=== PATIENT | female | born 1935 | race Caucasian/White ===

== ENCOUNTER 2019-05-17 01:07 | Observation (INO) | payer MEDICARE, OTHER ==
--- NOTE | 2019-05-17 01:13 | ERPHSYRPT ---
- History of Present Illness Time Seen by Provider: 05/17/19 01:12 Source: patient Exam Limitations: no limitations Physician History: 83 y/o white female with h/o chf, presents with soa for several days. sx worsening. no cp. no cough. no fever. pt stopped her lasix 6 weeks ago because she was losing weight. pts medical reviewer dr. Mora. Timing/Duration: day(s) (several), worse Severity of Dyspnea-Max: moderate Possible Cause: occasional episodes Modifying Factors: Improves With: activity Associated Symptoms: No wheezing, No weakness, No painful breathing, No productive cough Allergies/Adverse Reactions: naproxen Allergy (Verified 05/17/19 01:36) Penicillins Allergy (Verified 05/17/19 01:36) Hx Tetanus, Diphtheria Vaccination/Date Given: Yes Hx Influenza Vaccination/Date Given: Yes Hx Pneumococcal Vaccination/Date Given: No - Review of Systems Constitutional: No Symptoms Eyes: No Symptoms Ears, Nose, & Throat: No Symptoms Respiratory: Dyspnea, Dyspnea on Exertion (YAN) Cardiac: No Symptoms, No Chest Pain, No Palpitations, No Syncope Abdominal/Gastrointestinal: No Symptoms, No Abdominal Pain, No Nausea, No Vomiting, No Diarrhea Genitourinary Symptoms: No Symptoms Musculoskeletal: No Symptoms Skin: No Symptoms Neurological: No Symptoms Psychological: No Symptoms Endocrine: No Symptoms Hematologic/Lymphatic: No Symptoms Immunological/Allergic: No Symptoms All Other Systems: Reviewed and Negative - Past Medical History Pertinent Past Medical History: Yes Neurological History: No Pertinent History ENT History: No Pertinent History Cardiac History: No Pertinent History Respiratory History: No Pertinent History Endocrine Medical History: No Pertinent History Musculoskeletal History: No Pertinent History GI Medical History: No Pertinent History History: No Pertinent History Psycho-Social History: No Pertinent History Female Reproductive Disorders: No Pertinent History Other Medical History: varicose veins 45 years ago. 6 natural births. chronic sciatica - Past Surgical History Past Surgical History: Yes Neuro Surgical History: No Pertinent History Cardiac: No Pertinent History Respiratory: No Pertinent History Gastrointestinal: No Pertinent History Genitourinary: No Pertinent History Musculoskeletal: No Pertinent History Female Surgical History: No Pertinent History Other Surgical History: VARICOSE VEIN SURGERY - Social History Smoking Status: Never smoker Exposure to second hand smoke: No Drug Use: none Patient Lives Alone: No - Nursing Vital Signs Nursing Vital Signs: Initial Vital Signs Temperature 98.2 F 05/17/19 01:15 Pulse Rate 85 05/17/19 01:15 Respiratory Rate 25 H 05/17/19 01:15 Blood Pressure 150/89 05/17/19 01:15 O2 Sat by Pulse Oximetry 85 L 05/17/19 01:15 Pain Scale Pain Intensity 0 - Physical Exam General Appearance: mild distress, alert, anxiety Eye Exam: PERRL/EOMI Ears, Nose, Throat Exam: hearing grossly normal Neck Exam: normal inspection, non-tender, supple, full range of motion Respiratory Exam: diminished breath sounds, No chest tenderness, No respiratory distress, No rhonchi, No wheezing, No stridor Cardiovascular/Chest Exam: normal heart sounds, regular rate/rhythm, murmur Abdominal/Gastrointestinal Exam: soft, normal bowel sounds, No tenderness Rectal Exam: not done Extremity Exam: non-tender, normal range of motion, normal inspection, no pedal edema Neurologic Exam: alert, oriented x 3, cooperative Skin Exam: normal color, warm, dry Lymphatic Exam: No adenopathy SpO2 Interpretation: hypoxic - Course Nursing assessment & vital signs reviewed: Yes EKG Interpreted by Me: RATE (72), Sinus Rhythm, Left [place] Deviation, Right Bundle Branch Block, Other (when compared to ekg dated 05/04/16 new probable incomplete rbbb, persistent left ant fascicular block) Ordered Tests: Active Orders 24 hr Category Date Time Status Communication Electronic Technician STAT Care 05/17/19 01:14 Active EKG-ER Only STAT Care 05/17/19 01:13 Active Palomares [Catheter-[place] Palomares] STAT Care 05/17/19 06:52 Active IV Insertion STAT Care 05/17/19 01:13 Active Oxygen-ED Only Nasal Cannula 2 lpm Care 05/17/19 01:13 Active Pulse Oximetry (ED) STAT Care 05/17/19 01:13 Active CHEST 1 VIEW (PORTABLE) Stat Exams 05/17/19 01:14 Taken CHEST WITH CONTRAST [CT] Stat Exams 05/17/19 04:07 Taken BLOOD CULTURE Stat Lab 05/17/19 Ordered CBC W DIFF Stat Lab 05/17/19 01:13 Completed CMP Stat Lab 05/17/19 02:28 Completed D-DIMER QUANTITATION Stat Lab 05/17/19 01:13 Completed Lactic Acid Stat Lab 05/17/19 01:25 Completed NT PRO BNP Stat Lab 05/17/19 02:28 Completed PROTIME WITH INR Stat Lab 05/17/19 01:13 Completed TROPONIN Q3H Lab 05/17/19 02:28 Completed TROPONIN Q3H Lab 05/17/19 04:25 Completed TROPONIN Q3H Lab 05/17/19 07:15 Ordered TROPONIN Q3H Lab 05/17/19 10:15 Ordered TROPONIN Q3H Lab 05/17/19 13:15 Ordered Transfer Order Routine Transfer 05/17/19 Ordered Medication Summary Generic Name Dose Route Start Last Admin Trade Name Freq PRN Reason Stop Dose Admin Sodium Chloride 1,000 mls @ 50 mls/hr 05/17/19 04:15 05/17/19 04:21 Sodium Chloride 0.9% 1000 Ml IV 06/16/19 04:14 50 mls/hr .Q20H RENETTA Administration Ceftriaxone Sodium/Dextrose 1 g in 50 mls @ 100 mls/hr 05/17/19 06:44 06:52 Rocephin 1 Gm-D5w 50 Ml Bag IV 05/17/19 07:13 1 mls/hr STAT STA 1 mls/hr Administration Discontinued Medications Generic Name Dose Route Start Last Admin Trade Name Freq PRN Reason Stop Dose Admin Furosemide 40 mg 05/17/19 04:08 05/17/19 04:21 Lasix 40 Mg/4 Ml IV 05/17/19 04:09 40 mg STAT ONE Administration Furosemide Confirm 05/17/19 04:19 Lasix 40 Mg/4 Ml Administered 05/17/19 04:20 Dose 40 mg .ROUTE .STK-MED ONE Furosemide 20 mg 05/17/19 06:45 05/17/19 06:53 Lasix 20 Mg/2 Ml IV 05/17/19 06:46 20 mg STAT ONE Administration Furosemide Confirm 05/17/19 06:49 Lasix 40 Mg/4 Ml Administered 05/17/19 06:50 Dose 40 mg .ROUTE .STK-MED ONE Ceftriaxone Sodium/Dextrose Confirm 05/17/19 05:59 Rocephin 1 Gm-D5w 50 Ml Bag Administered 05/17/19 06:00 Dose 1 g in 50 mls @ ud IV .STK-MED ONE Lab/Rad Data: Laboratory Result Diagrams 05/17/19 01:13 05/17/19 02:28 Laboratory Results 05/17/19 05/17/19 05/17/19 Range/Units 04:25 02:28 02:28 WBC (4.0-10.5) K/mm3 RBC (4.1-5.4) M/mm3 Hgb (12.0-16.0) gm/dl Hct (35-47) % MCV (78-100) fl MCH (26-32) pg MCHC (32-36) g/dl RDW (11.5-14.0) % Plt Count (150-450) K/mm3 MPV (6-9.5) fl Gran % (36.0-66.0) % Eos # (Auto) (0-0.5) Absolute Lymphs (auto) (1.0-4.6) Absolute Monos (auto) (0.0-1.3) Lymphocytes % (24.0-44.0) % Monocytes % (0.0-12.0) % Eosinophils % (0.00-5.0) % Basophils % (0.0-0.4) % Absolute Granulocytes (1.4-6.9) Basophils # (0-0.4) PT (9.95-12.35) SECONDS INR (0.8-3.0) D-Dimer (215-500) ng/mL Sodium 140 (137-145) mmol/L Potassium 4.8 (3.5-5.1) mmol/L Chloride 108 H (98-107) mmol/L Carbon Dioxide 25 (22-30) mmol/L Anion Gap 12.4 (5-15) MEQ/L BUN 25 H (7-17) mg/dL Creatinine 1.02 (0.52-1.04) mg/dL Estimated GFR 54.7 ML/MIN Glucose 98 (74-106) mg/dL Lactic Acid (0.4-2.0) Calcium 9.1 (8.4-10.2) mg/dL Total Bilirubin 0.40 (0.2-1.3) mg/dL AST 57 H (14-36) U/L ALT 34 (0-35) U/L Alkaline Phosphatase 75 (38-126) U/L Troponin I 0.069 H* 0.077 H* (0.000-0.034) ng/mL NT-Pro-B Natriuret Pep 44904 H (0-1800) pg/mL Serum Total Protein 7.0 (6.3-8.2) g/dL Albumin 3.9 (3.5-5.0) g/dL 05/17/19 05/17/19 05/17/19 Range/Units 01:25 01:13 01:13 WBC 7.8 (4.0-10.5) K/mm3 RBC 3.79 L (4.1-5.4) M/mm3 Hgb 11.7 L (12.0-16.0) gm/dl Hct 35.3 (35-47) % MCV 93.1 (78-100) fl MCH 30.8 (26-32) pg MCHC 33.1 (32-36) g/dl RDW 13.6 (11.5-14.0) % Plt Count 321 (150-450) K/mm3 MPV 9.9 H (6-9.5) fl Gran % 59.4 (36.0-66.0) % Eos # (Auto) 0.87 H (0-0.5) Absolute Lymphs (auto) 1.52 (1.0-4.6) Absolute Monos (auto) 0.73 (0.0-1.3) Lymphocytes % 19.5 L (24.0-44.0) % Monocytes % 9.4 (0.0-12.0) % Eosinophils % 11.2 H (0.00-5.0) % Basophils % 0.5 (0.0-0.4) % Absolute Granulocytes 4.63 (1.4-6.9) Basophils # 0.04 (0-0.4) PT 11.1 (9.95-12.35) SECONDS INR 0.98 (0.8-3.0) D-Dimer 2019 H* (215-500) ng/mL Sodium (137-145) mmol/L Potassium (3.5-5.1) mmol/L Chloride (98-107) mmol/L Carbon Dioxide (22-30) mmol/L Anion Gap (5-15) MEQ/L BUN (7-17) mg/dL Creatinine (0.52-1.04) mg/dL Estimated GFR ML/MIN Glucose (74-106) mg/dL Lactic Acid 1.2 (0.4-2.0) Calcium (8.4-10.2) mg/dL Total Bilirubin (0.2-1.3) mg/dL AST (14-36) U/L ALT (0-35) U/L Alkaline Phosphatase (38-126) U/L Troponin I (0.000-0.034) ng/mL NT-Pro-B Natriuret Pep (0-1800) pg/mL Serum Total Protein (6.3-8.2) g/dL Albumin (3.5-5.0) g/dL - Progress Progress: improved Air Movement: fair Progress Note: 05/17/19 06:53 cta chest-no pulmonary embolus, bilat pleural effusion, bilat lower lobe pneumonias(haziness) spoke with dr. mills. i reviewed pt hx, condition, labs, ekg and xray results. she accepts pt for admission Antibiotics given: Yes Counseled pt/family regarding: lab results, diagnosis, need for follow-up, rad results - Departure Departure Disposition: Home Clinical Impression: CHF (congestive heart failure), Pneumonia, Pleural effusion Condition: Fair Critical Care Time: No Referrals: DANIEL LOYOLA [Primary Care Provider] - Instructions: Heart Failure
[2019-05-17 02:00] LABS: BASOPHIL % 0.5 % (0.0-0.4); Basophil (Absolute #) 0.04 (0-0.4); Eosinophil % 11.2 % (0.00-5.0); Eosinophil (Absolute #) 0.87 (0-0.5); Granulocyte Absolute (ANC) 4.63 (1.4-6.9); Granulocytes % 59.4 % (36.0-66.0); Hematocrit 35.3 % (35-47); Hemoglobin 11.7 gm/dl (12.0-16.0); Lymphocyte (Absolute #) 1.52 (1.0-4.6); Lymphocytes % 19.5 % (24.0-44.0); Mean Cell Volume 93.1 fl (78-100); Mean Corpuscular Hgb Concent. 33.1 g/dl (32-36); Mean Platelet Volume 9.9 fl (6-9.5); Monocyte (Absolute #) 0.73 (0.0-1.3); Monocytes % 9.4 % (0.0-12.0); Platelet Count 321 K/mm3 (150-450); Red Blood Count 3.79 M/mm3 (4.1-5.4); Red Cell Distribution Width 13.6 % (11.5-14.0); White Blood Count 7.8 K/mm3 (4.0-10.5)
[2019-05-17 02:16] LABS: Mean Corpuscular Hemoglobin 30.8 pg (26-32)
[2019-05-17 02:18] LABS: INR 0.98 (0.8-3.0); PROTIME 11.1 SECONDS (9.95-12.35)
[2019-05-17 03:52] LABS: ALBUMIN 3.9 g/dL (3.5-5.0); ANION GAP 12.4 MEQ/L (5-15); BILIRUBIN,TOTAL 0.4 mg/dL (0.2-1.3); Calcium 9.1 mg/dL (8.4-10.2); Creatinine 1 1.02 mg/dL (0.52-1.04); Potassium 4.8 mmol/L (3.5-5.1)
[2019-05-17] MEDS ORDERED: Lasix 40 MG/4 ML IV ONE (04:08)
[2019-05-17] MEDS ORDERED: Sodium Chloride 0.9% 1000 ML 1,000 ML IV SCH ×2 (04:15→07:41)
[2019-05-17] MEDS ORDERED: Sodium Chloride 0.9% 1000 ML 1,000 ML ONE (04:19)
[2019-05-17] MEDS ORDERED: Lasix 40 MG/4 ML ONE ×2 (04:19→06:49)
[2019-05-17] MEDS ORDERED: ROCEPHIN 1 Gm-D5w 50 ml Bag** 1 G/50 ML IVPB IV ONE (05:59)
[2019-05-17] MEDS ORDERED: ROCEPHIN 1 Gm-D5w 50 ml Bag** 1 G/50 ML IVPB IV STA (06:44)
[2019-05-17] MEDS ORDERED: Lasix 20 MG/2 ML IV ONE ×2 (06:45→20:00)
[2019-05-17] MEDS ORDERED: TYLENOL 325 MG PO PRN (07:41)
[2019-05-17] MEDS ORDERED: Zofran 4 MG/2 ML VIAL IV PRN (07:41)
--- NOTE | 2019-05-17 08:53 | XRAY ---
Indication: Short of breath. Elevated d-dimer. Multiple contiguous axial images obtained through the chest using 100 cc Isovue 370 contrast and PE protocol. Comparison: None There is good opacification of the pulmonary arteries to include the lobar and segmental branches. No filling defect or pulmonary embolus. Heart is enlarged. No pericardial effusion. Aorta is mildly arteriosclerotic without aneurysm/dissection. Mediastinal and right perihilar calcified nodes. No pathologic mediastinal lymphadenopathy. Examination of the lung parenchyma demonstrates moderate bilateral effusions, right greater than left with mild compressive atelectasis. Also bilateral patchy air space opacities greatest in both lower lobes. Scattered fibrosis/scarring. Bony thorax intact with mild osteopenia and mild degenerative changes. Limited upper abdomen demonstrates 3.6 cm hepatic cyst. Impression: 1. Negative pulmonary embolus. 2. Cardiomegaly and bilateral effusions. Rule out cardiac decompensation. 3. Bilateral patchy airspace disease. 4. Incidental hepatic cyst and evidence for granulomatous disease. Comment: Preliminary interpretation was made by [facility]. No critical discrepancy. CT DI 13.33
[2019-05-17] MEDS: Advair Hfa 115/21 Common canister IH SCH ×2 (08:55→22:47)
--- NOTE | 2019-05-17 08:55 | XRAY ---
Indication: Short of breath. Comparison: August 21, 2014. Portable chest again hyperinflated with new cardiomegaly, interstitial edema, and small bibasilar effusions favoring cardiac decompensation. Also new bibasilar infiltrates versus atelectasis. Bony thorax intact again with osteopenia and degenerative changes.
[2019-05-17] MEDS: ZOCOR 20MG PO SCH (09:46)
[2019-05-17] MEDS: SYNTHROID 25 MCG PO SCH (09:46)
[2019-05-17] MEDS: Zestril 10 MG PO SCH (09:46)
[2019-05-17] MEDS ORDERED: ADVAIR 250-50 DISKUS 14 DOSE IH SCH (10:00)
[2019-05-17] MEDS ORDERED: Zithromax 500 MG/ 250 ML NaCl Premix 500 MG/250 ML IVPB IV SCH (10:00)
[2019-05-17] MEDS ORDERED: NON-FORMULARY ITEM (Simvastatin [Simvastatin] 40 MG) PO SCH (10:00)
[2019-05-18 05:03] LABS: BASOPHIL % 0.8 % (0.0-0.4); Basophil (Absolute #) 0.06 (0-0.4); Eosinophil % 11.6 % (0.00-5.0); Eosinophil (Absolute #) 0.85 (0-0.5); Granulocyte Absolute (ANC) 4.38 (1.4-6.9); Granulocytes % 59.7 % (36.0-66.0); Hematocrit 35.2 % (35-47); Hemoglobin 11.6 gm/dl (12.0-16.0); Lymphocyte (Absolute #) 1.25 (1.0-4.6); Lymphocytes % 17.1 % (24.0-44.0); Mean Cell Volume 92.6 fl (78-100); Mean Corpuscular Hemoglobin 30.5 pg (26-32); Mean Platelet Volume 9.6 fl (6-9.5); Monocyte (Absolute #) 0.79 (0.0-1.3); Monocytes % 10.8 % (0.0-12.0); Platelet Count 314 K/mm3 (150-450); Red Cell Distribution Width 13.3 % (11.5-14.0); White Blood Count 7.3 K/mm3 (4.0-10.5)
[2019-05-18 05:35] LABS: ALBUMIN 3.2 g/dL (3.5-5.0); ANION GAP 10.4 MEQ/L (5-15); BILIRUBIN,TOTAL 0.4 mg/dL (0.2-1.3); Calcium 8.6 mg/dL (8.4-10.2); Creatinine 1 1.02 mg/dL (0.52-1.04); Potassium 4.4 mmol/L (3.5-5.1)
[2019-05-18 07:26] VITALS: BP 124/62; O2SAT 94
[2019-05-18] MEDS: ZOCOR 20MG PO SCH (08:51)
[2019-05-18] MEDS: Zestril 10 MG PO SCH (08:51)
[2019-05-18] MEDS: SYNTHROID 25 MCG PO SCH (08:51)
[2019-05-18] MEDS ORDERED: ROCEPHIN 1 Gm-D5w 50 ml Bag** 1 G/50 ML IVPB IV SCH (09:00)
[2019-05-18] MEDS: Advair Hfa 115/21 Common canister IH SCH (09:30)
--- NOTE | 2019-05-18 09:44 | SSS ---
DISCHARGE DIAGNOSES: 1) CONGESTIVE HEART FAILURE. 2) CORONARY ARTERY DISEASE. HISTORY: The patient is an 83 year-old white female who reports that she was concerned because she was losing weight and she stopped taking her Lasix about six weeks ago. She slowly got into problems with more and more shortness of breath. She presented to the emergency room and diagnosed with congestive heart failure and given a dose of IV Lasix and the patient diuresed briskly having greater than 1300 cc out after the first dose of IV Lasix. The patient's cardiac enzymes however have remained just slightly elevated. She has recently seen her chief relay tester about three weeks ago and at that time she reports things were fine and he made no changes. HOME MEDICATIONS: The patient is currently taking Synthroid at 25 mcg daily, lisinopril 10 mg daily. She takes Advair and Simvastatin 40 mg daily. She has not been taking her Lasix 40 mg daily which she normally was taking previously. ALLERGIES: NAPROXEN. PENICILLIN. PHYSICAL EXAMINATION: She had vital signs on admission that revealed temperature 98.2F, pulse 85, respiratory rate 25 and blood pressure 150.89. O2 saturation 85% on room air initially. The patient's physical examination reveals a frail, elderly white female who is alert and oriented x3, in no obvious distress otherwise. HEENT: Normocephalic, atraumatic. Pupils equal round reactive to light. Extraocular movements intact. Oropharynx is pink and moist. NECK: Supple without lymphadenopathy, thyromegaly or JVD. CHEST: Currently now clear to auscultation. HEART: Regular rate and rhythm without significant murmurs, rubs or gallops heard. ABDOMEN: Scaphoid. No palpable masses. EXTREMITIES: Without cyanosis, clubbing or edema. NEUROLOGIC: The patient is alert and oriented x3. LAB DATA AND TESTS: Laboratory studies have shown her troponins to be slightly elevated at 0.062. Her ProBNP was 12,700. She did have an elevation in D-dimer which led to CT scan with pulmonary embolism protocol which was negative for pulmonary embolism. It did show cardiomegaly and bilateral effusions. BUN 21, creatinine 1.02. Electrolytes were normal. Liver enzymes were normal. EKG showed to be in sinus rhythm with first degree AV block but otherwise her 12 lead EKG showed no acute changes. There was concern for old anterior myocardial infarction. HOSPITAL COURSE: The patient received IV Lasix and Palomares catheter was placed. She was on supplemental oxygen but now appears to be improved and feeling ready to go home. We will check O2 saturation to be sure she no longer needs oxygen. If she does we will allow her to qualify for home O2. She is asked to see me in the office early next week for follow up. She was asked to restart her Lasix at 40 mg b.i.d. in addition to her above medications otherwise. She was also asked to see her chief relay tester in the next week or so as she is able.
[2019-05-18 09:45] VITALS: PULSE 72
[2019-05-18] MEDS ORDERED: Lasix 40 MG/4 ML IV SCH (10:00)
== END 2019-05-18 11:40 | disposition home or self-care (01) ==
LOC: ED 01:07 → MED SURG 07:34
PROVIDERS: ADMIT Family Medicine; ATTEND Family Medicine
DX: I50.9 Heart failure, unspecified (principal); I25.10 Atherosclerotic heart disease of native coronary artery without angina pectoris; Z79.899 Other long term (current) drug therapy; I44.0 Atrioventricular block, first degree; I51.7 Cardiomegaly
CPT/HCPCS: 36000; 36415; 51702; 71045; 71260; 80053; 83605; 83880; 84484; 85025; 85379; 85610; 87040; 87086; 93005; 93041; 93268; 94640; 94760; 96360; 96361; 96365; 96374; 96376; 99285; G0378; J0456; J0696; J1940; A9270-GY

== ENCOUNTER 2019-08-18 01:28 | Emergency (ER) | payer MEDICARE, OTHER ==
[2019-08-18] MEDS ORDERED: Lasix 40 MG/4 ML ONE (01:55)
[2019-08-18 02:00] LABS: Absolute Neutrophil Ct (ANC) 3.36 (1.4-6.9); BASOPHIL % 0.7 % (0.0-0.4); Basophil (Absolute #) 0.04 (0-0.4); Eosinophil % 5.9 % (0.00-5.0); Eosinophil (Absolute #) 0.35 (0-0.5); Hematocrit 33.9 % (35-47); Lymphocyte (Absolute #) 1.72 (1.0-4.6); Lymphocytes % 28.9 % (24.0-44.0); Mean Cell Volume 94.4 fl (78-100); Mean Corpuscular Hemoglobin 30.6 pg (26-32); Mean Corpuscular Hgb Concent. 32.4 g/dl (32-36); Mean Platelet Volume 9.6 fl (6-9.5); Monocyte (Absolute #) 0.49 (0.0-1.3); Monocytes % 8.2 % (0.0-12.0); Neutrophil % 56.3 % (36.0-66.0); Platelet Count 253 K/mm3 (150-450); Red Blood Count 3.59 M/mm3 (4.1-5.4); Red Cell Distribution Width 14.4 % (11.5-14.0)
[2019-08-18 02:19] LABS: ALBUMIN 4.2 g/dL (3.5-5.0); ANION GAP 11.5 MEQ/L (5-15); BILIRUBIN,TOTAL 0.4 mg/dL (0.2-1.3); Calcium 9.6 mg/dL (8.4-10.2); Creatinine 1 1.16 mg/dL (0.52-1.04); Potassium 4.3 mmol/L (3.5-5.1); Total Protein 7.3 g/dL (6.3-8.2)
--- NOTE | 2019-08-18 02:34 | ERPHSYRPT ---
- History of Present Illness Time Seen by Provider: 08/18/19 01:39 Source: patient, family Exam Limitations: no limitations Patient Subjective Stated Complaint: Patient states SOB increased for the last couple of days. Patients states SOB while lying day. Patient states she had heart test today at [facility], patient states she thinks it was a stress test Triage Nursing Assessment: Patient ambulates to ER with complaint of SOB inital sat 88 Physician History: POS HC CHF: NORMALLY TAKES LASIX DAILY . PATIENT HAS BEEN OFF THE LASIX DUE TO SCHEDULED NUCLEAR HEART SCAN--DONE TODAY SOB HAS BEEN FOR THE PAST 1 WEEK NEG: FEVER Timing/Duration: week(s) (1) Activities at Onset: activity (DDAILY ACTIVITIES) Severity of Dyspnea-Current: mild (TO MODERATE) Modifying Factors: Improves With: albuterol nebulizer, oxygen Associated Symptoms: cough, weakness International travel in last 2 weeks: No Allergies/Adverse Reactions: naproxen Allergy (Verified 08/18/19 01:39) Penicillins Allergy (Verified 08/18/19 01:39) Home Medications: Fluticasone Propion/Salmeterol [Fluticasone-Salmeterol 250-50] 1 inh PO DAILY [History] Levothyroxine Sodium 25 mcg PO DAILY 05/17/19 [History] Lisinopril 10 mg [Zestril 10 MG] 1 tab PO DAILY 05/17/19 [History] Simvastatin 40 mg PO DAILY 05/17/19 [History] Hx Tetanus, Diphtheria Vaccination/Date Given: No Hx Influenza Vaccination/Date Given: Yes Hx Pneumococcal Vaccination/Date Given: No Immunizations Up to Date: Yes - Review of Systems Constitutional: Fatigue, No Fever, No Chills Eyes: No Symptoms Ears, Nose, & Throat: Nose Congestion Respiratory: Cough, Dyspnea, Dyspnea on Exertion (YAN) Cardiac: Orthopnea, No Chest Pain, No Edema, No Palpitations, No Syncope Abdominal/Gastrointestinal: No Abdominal Pain, No Nausea, No Vomiting, No Diarrhea, No Constipation Genitourinary Symptoms: No Symptoms Musculoskeletal: Arthralgias, Back Pain Skin: No Symptoms Neurological: No Symptoms Psychological: No Symptoms Endocrine: No Symptoms Hematologic/Lymphatic: No Symptoms Immunological/Allergic: No Symptoms All Other Systems: Reviewed and Negative - Past Medical History Pertinent Past Medical History: Yes Neurological History: No Pertinent History ENT History: No Pertinent History Cardiac History: Hypertension Respiratory History: Other Endocrine Medical History: Hypothyroidism Musculoskeletal History: Arthritis GI Medical History: No Pertinent History History: No Pertinent History Psycho-Social History: No Pertinent History Female Reproductive Disorders: No Pertinent History Other Medical History: varicose veins 45 years ago. 6 natural births. chronic sciatica - Past Surgical History Past Surgical History: Yes Neuro Surgical History: No Pertinent History Cardiac: No Pertinent History Respiratory: No Pertinent History Gastrointestinal: No Pertinent History Genitourinary: No Pertinent History Musculoskeletal: No Pertinent History Female Surgical History: No Pertinent History Other Surgical History: VARICOSE VEIN SURGERY - Social History Smoking Status: Never smoker Exposure to second hand smoke: No Drug Use: none Patient Lives Alone: No - Female History Hx Now: No - Nursing Vital Signs Nursing Vital Signs: Initial Vital Signs Temperature 97.3 F 08/18/19 01:30 Pulse Rate 79 08/18/19 01:30 Respiratory Rate 18 08/18/19 01:30 O2 Sat by Pulse Oximetry 88 L 08/18/19 01:30 Pain Scale Pain Intensity 0 - Physical Exam General Appearance: mild distress Eye Exam: PERRL/EOMI Ears, Nose, Throat Exam: normal pharynx, hearing decreased, nasal congestion Neck Exam: limited range of motion (POS: DJD ), No lymphadenopathy (R), No thyromegaly Respiratory Exam: chest tenderness, diminished breath sounds, prolonged expirations, crackles/rales, wheezing (END EXPIRATORY) Cardiovascular/Chest Exam: murmur (GRD2/6 SYS 2RICS/APEX 2LICS RAD-CAROTIDS ), No gallop/S3, No gallop/S4 Abdominal/Gastrointestinal Exam: normal bowel sounds, No tenderness, No distention, No mass, No guarding, No ecchymosis Extremity Exam: non-tender, normal range of motion, normal inspection, normal capillary refill, no calf tenderness, no pedal edema, pelvis stable, No calf tenderness Neurologic Exam: alert, oriented x 3, cooperative, alley worker II-XII nml as tested, normal mood/affect, nml cerebellar function Skin Exam: normal color, warm, dry, No rash Lymphatic Exam: No adenopathy SpO2 Interpretation: hypoxic, O2 applied SpO2: 88 O2 Delivery: Nasal Cannula - Course Nursing assessment & vital signs reviewed: Yes EKG Interpreted by Me: Left [place] Deviation (LAFB OLD: ANT [place] AGE ? OLD INF WALL [place] AGE? nonspec st changes 0154), 1st degree AV Block, Non-specific ST Changes Ordered Tests: Active Orders 24 hr Category Date Time Status IV Insertion STAT Care 08/18/19 01:46 Active CHEST 1 VIEW (PORTABLE) Stat Exams 08/18/19 02:00 Taken CBC W DIFF Stat Lab 08/18/19 02:00 Completed CMP Stat Lab 08/18/19 02:00 Completed NT PRO BNP Stat Lab 08/18/19 02:00 Completed PT INR [PROTIME WITH INR] Stat Lab 08/18/19 03:55 Completed TROPONIN Q3H Lab 08/18/19 02:00 Completed TROPONIN Stat Lab 08/18/19 03:55 Completed UA W/RFX UR CULTURE Stat Lab 08/18/19 02:40 Completed Medication Summary Generic Name Dose Route Start Last Admin Trade Name Freq PRN Reason Stop Dose Admin Enoxaparin Sodium 50 mg 08/18/19 04:54 Enoxaparin Sodium SQ 08/18/19 04:55 STAT ONE Furosemide 20 mg 08/18/19 10:00 08/18/19 01:56 Lasix 20 Mg/2 Ml IV 09/17/19 09:59 20 mg QAM RENETTA Administration Discontinued Medications Generic Name Dose Route Start Last Admin Trade Name Freq PRN Reason Stop Dose Admin Enoxaparin Sodium Confirm 08/18/19 05:04 Enoxaparin Sodium Administered 08/18/19 05:05 Dose 80 mg SQ .STK-MED ONE Furosemide Confirm 08/18/19 01:55 Lasix 40 Mg/4 Ml Administered 08/18/19 01:56 Dose 40 mg .ROUTE .STK-MED ONE Lab/Rad Data: Laboratory Result Diagrams 08/18/19 02:00 08/18/19 02:00 Laboratory Results 08/18/19 08/18/19 08/18/19 Range/Units 03:55 03:55 02:40 WBC (4.0-10.5) K/mm3 RBC (4.1-5.4) M/mm3 Hgb (12.0-16.0) gm/dl Hct (35-47) % MCV (78-100) fl MCH (26-32) pg MCHC (32-36) g/dl RDW (11.5-14.0) % Plt Count (150-450) K/mm3 MPV (6-9.5) fl Gran % (36.0-66.0) % Eos # (Auto) (0-0.5) Absolute Lymphs (auto) (1.0-4.6) Absolute Monos (auto) (0.0-1.3) Lymphocytes % (24.0-44.0) % Monocytes % (0.0-12.0) % Eosinophils % (0.00-5.0) % Basophils % (0.0-0.4) % Absolute Granulocytes (1.4-6.9) Basophils # (0-0.4) PT 11.6 (9.95-12.35) SECONDS INR 1.03 (0.8-3.0) Sodium (137-145) mmol/L Potassium (3.5-5.1) mmol/L Chloride (98-107) mmol/L Carbon Dioxide (22-30) mmol/L Anion Gap (5-15) MEQ/L BUN (7-17) mg/dL Creatinine (0.52-1.04) mg/dL Estimated GFR ML/MIN Glucose (74-106) mg/dL Calcium (8.4-10.2) mg/dL Total Bilirubin (0.2-1.3) mg/dL AST (14-36) U/L ALT (0-35) U/L Alkaline Phosphatase (38-126) U/L Troponin I 0.068 H* (0.000-0.034) ng/mL NT-Pro-B Natriuret Pep (0-1800) pg/mL Serum Total Protein (6.3-8.2) g/dL Albumin (3.5-5.0) g/dL Urine Color STRAW (YELLOW) Urine Appearance CLEAR (CLEAR) Urine pH 6.0 (5-6) Ur Specific Raymond 1.008 (1.005-1.025) Urine Protein 30 (Negative) Urine Ketones NEGATIVE (NEGATIVE) Urine Blood SMALL (0-5) Brando/ul Urine Nitrite NEGATIVE (NEGATIVE) Urine Bilirubin NEGATIVE (NEGATIVE) Urine Urobilinogen NEGATIVE (0-1) mg/dL Ur Leukocyte Esterase NEGATIVE (NEGATIVE) Urine WBC (Auto) NONE (0-5) /HPF Urine RBC (Auto) NONE (0-2) /HPF U Epithel Cells (Auto) NONE (FEW) /HPF Urine Bacteria (Auto) NONE (NEGATIVE) /HPF Urine Mucus (Auto) SLIGHT (NEGATIVE) /HPF Urine Culture Reflexed NO (NO) Urine Glucose NEGATIVE (NEGATIVE) mg/dL 08/18/19 08/18/19 08/18/19 Range/Units 02:00 02:00 02:00 WBC 6.0 (4.0-10.5) K/mm3 RBC 3.59 L (4.1-5.4) M/mm3 Hgb 11.0 L (12.0-16.0) gm/dl Hct 33.9 L (35-47) % MCV 94.4 (78-100) fl MCH 30.6 (26-32) pg MCHC 32.4 (32-36) g/dl RDW 14.4 H (11.5-14.0) % Plt Count 253 (150-450) K/mm3 MPV 9.6 H (6-9.5) fl Gran % 56.3 (36.0-66.0) % Eos # (Auto) 0.35 (0-0.5) Absolute Lymphs (auto) 1.72 (1.0-4.6) Absolute Monos (auto) 0.49 (0.0-1.3) Lymphocytes % 28.9 (24.0-44.0) % Monocytes % 8.2 (0.0-12.0) % Eosinophils % 5.9 H (0.00-5.0) % Basophils % 0.7 (0.0-0.4) % Absolute Granulocytes 3.36 (1.4-6.9) Basophils # 0.04 (0-0.4) PT (9.95-12.35) SECONDS INR (0.8-3.0) Sodium 141 (137-145) mmol/L Potassium 4.3 (3.5-5.1) mmol/L Chloride 106 (98-107) mmol/L Carbon Dioxide 28 (22-30) mmol/L Anion Gap 11.5 (5-15) MEQ/L BUN 38 H (7-17) mg/dL Creatinine 1.16 H (0.52-1.04) mg/dL Estimated GFR 47.2 ML/MIN Glucose 96 (74-106) mg/dL Calcium 9.6 (8.4-10.2) mg/dL Total Bilirubin 0.40 (0.2-1.3) mg/dL AST 35 (14-36) U/L ALT 21 (0-35) U/L Alkaline Phosphatase 53 (38-126) U/L Troponin I 0.071 H* (0.000-0.034) ng/mL NT-Pro-B Natriuret Pep 47607 H (0-1800) pg/mL Serum Total Protein 7.3 (6.3-8.2) g/dL Albumin 4.2 (3.5-5.0) g/dL Urine Color (YELLOW) Urine Appearance (CLEAR) Urine pH (5-6) Ur Specific Raymond (1.005-1.025) Urine Protein (Negative) Urine Ketones (NEGATIVE) Urine Blood (0-5) Brando/ul Urine Nitrite (NEGATIVE) Urine Bilirubin (NEGATIVE) Urine Urobilinogen (0-1) mg/dL Ur Leukocyte Esterase (NEGATIVE) Urine WBC (Auto) (0-5) /HPF Urine RBC (Auto) (0-2) /HPF U Epithel Cells (Auto) (FEW) /HPF Urine Bacteria (Auto) (NEGATIVE) /HPF Urine Mucus (Auto) (NEGATIVE) /HPF Urine Culture Reflexed (NO) Urine Glucose (NEGATIVE) mg/dL - Progress Progress: improved (DR ZHAO ER-ER TRANSFER ACCEPTING DR ROMERO/ BEHAVIORAL INTERVENTIONIST 0382 ) Air Movement: fair Blood Culture(s) Obtained: No Antibiotics given: No Counseled pt/family regarding: lab results, diagnosis, need for follow-up, rad results - Departure Departure Disposition: Transfer Clinical Impression: AV bloc first degree, Non-STEMI (non-ST elevated myocardial infarction), Pleural effusion due to CHF (congestive heart failure), Renal insufficiency, mild CHF (congestive heart failure) Qualifiers: Heart failure type: combined systolic and diastolic Heart failure chronicity: acute on chronic Qualified Code(s): I50.43 - Acute on chronic combined systolic (congestive) and diastolic (congestive) heart failure Condition: Stable Critical Care Time: Yes Critical Care Time(excluding separately billable procedures): Critical 75-104 mins (direct patient care--re-evaluation,discussed with family and pt,discussed with accepting doctor ,xray/lab interpretation) Referrals: DANIEL LOYOLA [Primary Care Provider] - Instructions: Heart Failure
[2019-08-18 02:48] LABS: Appearance CLEAR (CLEAR); Bilirubin NEGATIVE (NEGATIVE); Blood SMALL Ery/ul (0-5); Glucose NEGATIVE (NEGATIVE); Ketones NEGATIVE (NEGATIVE); Leukocyte Esterase NEGATIVE (NEGATIVE); Mucus SLIGHT /HPF (NEGATIVE); Nitrite NEGATIVE (NEGATIVE); Protein,Urine Dip 30 (Negative); Specific Gravity 1.008 (1.005-1.025); Urobilinogen NEGATIVE mg/dL (0-1)
[2019-08-18] MEDS ORDERED: ENOXAPARIN SODIUM SQ ONE ×3 (04:54→05:06)
[2019-08-18 05:00] LABS: INR 1.03 (0.8-3.0); PROTIME 11.6 SECONDS (9.95-12.35)
[2019-08-18 06:00] VITALS: BP 123/81; PULSE 76; O2SAT 96
[2019-08-18] MEDS ORDERED: Lasix 20 MG/2 ML IV SCH (10:00)
--- NOTE | 2019-08-18 17:53 | XRAY ---
Exam: AP upright portable chest film from 08/18/2019. Comparison: AP portable chest film from 05/17/[address] of the chest with IV contrast from 05/17/2019 Indication: Shortness of breath, cough, sore throat. Findings: The heart size again appears mildly enlarged. Calcified lymph nodes are seen overlying the right margin of the rosa representing no change. Mild bibasilar airspace disease and bibasilar pleural effusions are again present. I believe there are also some [place] B-lines along the lateral pleural surfaces of both lower lung mojica. These findings appear slightly more prominent as compared to 05/17/2019. The upper and midlung zones reveal some scattered linear scarring and chronic changes. No pneumothorax is seen. There is minimal convexity of the mid thoracic spine toward the right. Impression: 1. Findings consistent with cardiac decompensation/CHF are seen. This is similar to 05/17/2019. 2. I again note mild bibasilar airspace disease which is slightly more prominent as compared to 05/17/2019. This could reflect superimposed bibasilar pneumonia. Correlate clinically.
== END 2019-08-18 06:21 | disposition short-term general hospital (02) ==
LOC: ED 01:28
DX: I50.43 Acute on chronic combined systolic (congestive) and diastolic (congestive) heart failure (principal); I44.39 Other atrioventricular block; I21.4 Non-ST elevation (NSTEMI) myocardial infarction; J90 Pleural effusion, not elsewhere classified; I50.9 Heart failure, unspecified; N28.9 Disorder of kidney and ureter, unspecified
CPT/HCPCS: 36000; 36415; 71045; 80053; 81001; 83880; 84484; 85025; 85610; 96372; 96374; 99285; 99291; 99292; J1650; J1940

== ENCOUNTER 2019-09-17 22:38 | Emergency (ER) | payer MEDICARE, OTHER ==
[2019-09-17] MEDS ORDERED: DUONEB 0.5-3 MG/3 ml Neb IH ONE ×2 (23:39→23:51)
--- NOTE | 2019-09-17 23:47 | ERPHSYRPT ---
- History of Present Illness Patient Subjective Stated Complaint: pt is alert and oriented. pt comes in with c/o cough, congestion, fever for the last 2-3 days. pt states pain when she coughs. pt LLL has fine crackles. RUL, RML, SAIDA, RLL all clear breath sounds. pt states that she is coughing up yellow sputum. Triage Nursing Assessment: see above Physician History: 83 yo with CHF presented with 3 days of worsening cough productive of yellow green sputum , moderate in amount , associated with low grade subjective feeling of fever and chills. mild sore throat as well. because of repetaed coughing is having chest soreness and pain everytime she coughs. has SOB at baseline which is not any worse than usual.no palpitation . no other URI symptoms Timing/Duration: day(s) (3), intermittent, worse Cough Quality/Degree: moderate, productive cough, sputum Possible Cause: no prior episodes Associated Symptoms: fever, chills, chest pain/soreness, muscle aches, shortness of breath Allergies/Adverse Reactions: naproxen Allergy (Verified 08/18/19 01:39) Penicillins Allergy (Verified 08/18/19 01:39) Home Medications: Fluticasone Propion/Salmeterol [Fluticasone-Salmeterol 250-50] 1 inh PO DAILY [History] Levothyroxine Sodium 25 mcg PO DAILY 05/17/19 [History] Lisinopril 10 mg [Zestril 10 MG] 1 tab PO DAILY 05/17/19 [History] Simvastatin 40 mg PO DAILY 05/17/19 [History] Hx Tetanus, Diphtheria Vaccination/Date Given: No Hx Influenza Vaccination/Date Given: Yes (2018) Hx Pneumococcal Vaccination/Date Given: Yes (2019) Immunizations Up to Date: Yes - Review of Systems Constitutional: Fever, Chills, Fatigue Eyes: No Symptoms Ears, Nose, & Throat: Throat Pain Respiratory: Cough, Dyspnea on Exertion (YAN), No Wheezing Cardiac: Chest Pain Abdominal/Gastrointestinal: No Symptoms Genitourinary Symptoms: No Symptoms Musculoskeletal: Myalgias Skin: No Symptoms Neurological: No Symptoms Psychological: No Symptoms Endocrine: No Symptoms Hematologic/Lymphatic: No Symptoms Immunological/Allergic: No Symptoms - Past Medical History Pertinent Past Medical History: Yes Neurological History: No Pertinent History ENT History: No Pertinent History Cardiac History: Congestive Heart Failure, Hypertension Respiratory History: Other Endocrine Medical History: Hypothyroidism Musculoskeletal History: Arthritis GI Medical History: No Pertinent History History: No Pertinent History Psycho-Social History: No Pertinent History Female Reproductive Disorders: No Pertinent History Other Medical History: varicose veins 45 years ago. 6 natural births. chronic sciatica - Past Surgical History Past Surgical History: Yes Neuro Surgical History: No Pertinent History Cardiac: No Pertinent History Respiratory: No Pertinent History Gastrointestinal: No Pertinent History Genitourinary: No Pertinent History Musculoskeletal: No Pertinent History Female Surgical History: No Pertinent History Other Surgical History: VARICOSE VEIN SURGERY - Social History Smoking Status: Former smoker Exposure to second hand smoke: No Drug Use: none Patient Lives Alone: No - Nursing Vital Signs Nursing Vital Signs: Initial Vital Signs Temperature 98.8 F 09/17/19 23:03 Pulse Rate 87 09/17/19 23:03 Respiratory Rate 22 09/17/19 23:03 Blood Pressure 109/61 09/17/19 23:03 O2 Sat by Pulse Oximetry 96 09/17/19 23:03 Pain Scale Pain Intensity 3 - Physical Exam General Appearance: no apparent distress, alert Eye Exam: eyes nml inspection Ears, Nose, Throat Exam: normal ENT inspection Neck Exam: normal inspection, non-tender, supple, full range of motion Respiratory Exam: normal breath sounds, wheezing (FEW SCATTERED) Cardiovascular Exam: regular rate/rhythm, normal heart sounds, normal peripheral pulses Gastrointestinal/Abdomen Exam: soft, normal bowel sounds, No tenderness Back Exam: normal inspection Extremity Exam: normal inspection, normal range of motion Neurologic Exam: alert, oriented x 3, cooperative Skin Exam: normal color SpO2 Interpretation: normal SpO2: 96 O2 Delivery: Room Air Ordered Tests: Active Orders 24 hr Category Date Time Status Peak Expiratory Flow Rate ONCE RT 09/17/19 23:56 Active Respiratory Therapy Assessment DAILY RT 09/17/19 23:56 Active Medication Summary Discontinued Medications Generic Name Dose Route Start Last Admin Trade Name Freq PRN Reason Stop Dose Admin Albuterol/Ipratropium 3 ml 09/17/19 23:39 09/17/19 23:53 Duoneb 0.5-3 Mg/3 Ml Neb IH 09/17/19 23:40 3 ml STAT ONE Administration Albuterol/Ipratropium Confirm 09/17/19 23:51 Duoneb 0.5-3 Mg/3 Ml Neb Administered 09/17/19 23:52 Dose 3 ml IH .STK-MED ONE Prednisone 40 mg 09/18/19 00:52 Deltasone 20 Mg PO 09/18/19 00:53 STAT ONE - Progress Progress: improved, re-examined Air Movement: good Progress Note: 09/18/19 00:53 SHE IS GIVEN DUO NEB , ON RE EVALUATION FEELING MUCH BETTER . SH EIS ALSO GIVEN A DOSE OF STEROIDS WELL. I RECOMMENDED CXR BUT PATIENT DOESNT WANT TO WAIT AND SAYS I AM FEELING A WHOLE LOT BETTER AND WANT TO LEAVE NOW, DONT WANT XRAYS. I WOULD GIVE HER Z PACK TO G HOME ALONG WITH ALBUTEROL INHALER AND RECOMMENDED OUT PATIENT PCP FOLLOW UP IN THE MORNING WHICH SHE WOULD. SHE IS NOT IN ANY DISTRESS AT ALL. Counseled pt/family regarding: diagnosis, need for follow-up - Departure Departure Disposition: Home Clinical Impression: Bronchitis Condition: Stable Critical Care Time: No Referrals: DANIEL LOYOLA [Primary Care Provider] - Instructions: Cough, Adult (DC) Additional Instructions: USE INHALER NEEDED. FOLLOW UP WITH PCP FOR RE EVALUATION TOMORROW. RETURN TO ER FOR WORSENING COPUGH/FEVER/SHORTNESS OF BREATH ETC. Prescriptions: Albuterol 8 gm Mdi Hfa [Ventolin Hfa MDI] 8 gm IH Q4H #1 hfa.aer.ad Azithromycin 250 mg [Zithromax 250 MG TABLET] 250 mg PO ZPACK #6 tablet Prednisone 20 mg [Deltasone 20 mg] 40 mg PO DAILY 5 Days #10 tablet
[2019-09-18] MEDS ORDERED: DELTASONE 20 MG PO ONE (00:52)
[2019-09-18] MEDS ORDERED: DELTASONE 20 MG ONE (01:00)
[2019-09-18 01:28] VITALS: BP 102/60; PULSE 88; O2SAT 98
== END 2019-09-18 01:26 | disposition home or self-care (01) ==
LOC: ED 22:38
DX: J40 Bronchitis, not specified as acute or chronic (principal); R50.9 Fever, unspecified; Z79.899 Other long term (current) drug therapy; I50.9 Heart failure, unspecified; R07.89 Other chest pain; I10 Essential (primary) hypertension; E03.9 Hypothyroidism, unspecified
CPT/HCPCS: 94150; 94640; 99283; A9270-GY

== ENCOUNTER 2020-02-28 16:40 | Emergency (ER) | payer MEDICARE, OTHER ==
--- NOTE | 2020-02-28 16:46 | ERPHSYRPT ---
- History of Present Illness Time Seen by Provider: 02/28/20 16:46 Source: patient, family Physician History: This is an 84-year-old white female who has a history of congestive heart failure, renal insufficiency and coronary artery disease. Patient states that she has chronic shortness of air. However, today her shortness of breath was worse and she had associated chest pain and right-sided shoulder pain. Patient has had no flulike symptoms she has had no fever and no abdominal pain. She had no nausea vomiting or diarrhea. Patient took her Lasix today. Timing/Duration: today Activities at Onset: none Severity of Dyspnea-Max: moderate Severity of Dyspnea-Current: moderate Possible Cause: occasional episodes Associated Symptoms: chest pain/discomfort Allergies/Adverse Reactions: naproxen Allergy (Verified 08/18/19 01:39) Penicillins Allergy (Verified 08/18/19 01:39) Home Medications: Fluticasone Propion/Salmeterol [Fluticasone-Salmeterol 250-50] 1 inh PO DAILY 05/17/19 [History] Levothyroxine Sodium 25 mcg PO DAILY 05/17/19 [History] Lisinopril 10 mg [Zestril 10 MG] 1 tab PO DAILY 05/17/19 [History] Simvastatin 40 mg PO DAILY 05/17/19 [History] Hx Tetanus, Diphtheria Vaccination/Date Given: No Hx Influenza Vaccination/Date Given: Yes (2018) Hx Pneumococcal Vaccination/Date Given: Yes (2018) Travel Risk - International Travel Have you traveled outside of the country in past 3 weeks: No - Coronavirus Screening Are you exhibiting any of the following symptoms?: No Close contact with a COVID-19 positive Pt in past 14-21 Days: No - Review of Systems Constitutional: No Symptoms Eyes: No Symptoms Ears, Nose, & Throat: No Symptoms Respiratory: Dyspnea Cardiac: Chest Pain Abdominal/Gastrointestinal: No Symptoms Genitourinary Symptoms: No Symptoms Musculoskeletal: No Symptoms Skin: No Symptoms Neurological: No Symptoms Psychological: No Symptoms Endocrine: No Symptoms Hematologic/Lymphatic: No Symptoms Immunological/Allergic: No Symptoms All Other Systems: Reviewed and Negative - Past Medical History Pertinent Past Medical History: Yes Neurological History: No Pertinent History ENT History: No Pertinent History Cardiac History: Congestive Heart Failure, Hypertension Respiratory History: Other Endocrine Medical History: Hypothyroidism Musculoskeletal History: Arthritis GI Medical History: No Pertinent History History: No Pertinent History Psycho-Social History: No Pertinent History Female Reproductive Disorders: No Pertinent History Other Medical History: varicose veins 45 years ago. 6 natural births. chronic sciatica - Past Surgical History Past Surgical History: Yes Neuro Surgical History: No Pertinent History Cardiac: No Pertinent History Respiratory: No Pertinent History Gastrointestinal: No Pertinent History Genitourinary: No Pertinent History Musculoskeletal: No Pertinent History Female Surgical History: No Pertinent History Other Surgical History: VARICOSE VEIN SURGERY - Social History Smoking Status: Former smoker Exposure to second hand smoke: No Drug Use: none Patient Lives Alone: No - Nursing Vital Signs Nursing Vital Signs: Initial Vital Signs Respiratory Rate 21 02/28/20 16:42 O2 Sat by Pulse Oximetry 95 02/28/20 16:42 Pain Scale Pain Intensity 4 - Physical Exam General Appearance: no apparent distress, alert, anxiety Eye Exam: PERRL/EOMI, eyes nml inspection Ears, Nose, Throat Exam: hearing grossly normal, normal ENT inspection Neck Exam: normal inspection, non-tender, supple, full range of motion Respiratory Exam: normal breath sounds, chest tenderness, lungs clear, respiratory distress, airway intact Cardiovascular/Chest Exam: normal heart sounds, regular rate/rhythm, normal peripheral pulses Abdominal/Gastrointestinal Exam: soft, normal bowel sounds, No tenderness, No guarding Rectal Exam: not done Extremity Exam: non-tender, normal range of motion, normal inspection Neurologic Exam: alert, oriented x 3, cooperative, 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 Patient shows evidence of LVH. There is non- specific IVCD with LAD. There is no evidence of new acute ischemic changes) Ordered Tests: Active Orders 24 hr Category Date Time Status Promotions Manager STAT Care 02/28/20 17:17 Active EKG-ER Only STAT Care 02/28/20 17:16 Active IV Insertion STAT Care 02/28/20 17:16 Active Pulse Oximetry (ED) STAT Care 02/28/20 17:16 Active CHEST 1 VIEW (PORTABLE) Stat Exams 02/28/20 17:17 Taken SHOULDER Stat Exams 02/28/20 17:18 Taken CBC W DIFF Stat Lab 02/28/20 17:16 Completed CMP Stat Lab 02/28/20 Completed D-DIMER QUANTITATIVE Stat Lab 02/28/20 17:16 Completed NT PRO BNP Stat Lab 02/28/20 Completed PROTIME WITH INR Stat Lab 02/28/20 17:16 Completed TROPONIN Q3H Lab 02/28/20 17:30 Completed TROPONIN Q3H Lab 02/28/20 20:30 Ordered TROPONIN Q3H Lab 02/28/20 23:30 Ordered TROPONIN Q3H Lab 02/29/20 02:30 Ordered TROPONIN Q3H Lab 02/29/20 05:30 Ordered Medication Summary Discontinued Medications Generic Name Dose Route Start Last Admin Trade Name Freq PRN Reason Stop Dose Admin Enoxaparin Sodium 40 mg 02/28/20 19:28 Enoxaparin Sodium SQ 02/28/20 19:29 STAT ONE Furosemide 40 mg 02/28/20 19:30 Lasix 40 Mg/4 Ml IV 02/28/20 19:31 STAT ONE Lab/Rad Data: Laboratory Result Diagrams 02/28/20 17:16 02/28/20 Unknown Laboratory Results 02/28/20 02/28/20 02/28/20 Range/Units Unknown 17:30 17:16 WBC (4.0-10.5) K/mm3 RBC (4.1-5.4) M/mm3 Hgb (12.0-16.0) gm/dl Hct (35-47) % MCV (78-100) fl MCH (26-32) pg MCHC (32-36) g/dl RDW (11.5-14.0) % Plt Count (150-450) K/mm3 MPV (7.5-11.0) fl Gran % (36.0-66.0) % Eos # (Auto) (0-0.5) Absolute Lymphs (auto) (1.0-4.6) Absolute Monos (auto) (0.0-1.3) Lymphocytes % (24.0-44.0) % Monocytes % (0.0-12.0) % Eosinophils % (0.00-5.0) % Basophils % (0.0-0.4) % Absolute Granulocytes (1.4-6.9) Basophils # (0-0.4) PT 12.3 (9.95-12.35) SECONDS INR 1.09 (0.8-3.0) D-Dimer 5757 H* (215-500) ng/mL Sodium 137 (137-145) mmol/L Potassium 4.8 (3.5-5.1) mmol/L Chloride 102 (98-107) mmol/L Carbon Dioxide 26 (22-30) mmol/L Anion Gap 14.1 (5-15) MEQ/L BUN 54 H (7-17) mg/dL Creatinine 1.31 H (0.52-1.04) mg/dL Estimated GFR 40.9 ML/MIN Glucose 89 (74-106) mg/dL Calcium 9.0 (8.4-10.2) mg/dL Total Bilirubin 0.40 (0.2-1.3) mg/dL AST 39 H (14-36) U/L ALT 31 (0-35) U/L Alkaline Phosphatase 71 (38-126) U/L Troponin I 0.088 H* (0.000-0.034) ng/mL NT-Pro-B Natriuret Pep 91652 H (0-1800) pg/mL Serum Total Protein 6.9 (6.3-8.2) g/dL Albumin 4.0 (3.5-5.0) g/dL //20 Range/Units 17:16 WBC 6.7 (4.0-10.5) K/mm3 RBC 3.98 L (4.1-5.4) M/mm3 Hgb 11.2 L (12.0-16.0) gm/dl Hct 34.7 L (35-47) % MCV 87.2 (78-100) fl MCH 28.1 (26-32) pg MCHC 32.3 (32-36) g/dl RDW 15.0 H (11.5-14.0) % Plt Count 259 (150-450) K/mm3 MPV 10.2 (7.5-11.0) fl Gran % 65.2 (36.0-66.0) % Eos # (Auto) 0.36 (0-0.5) Absolute Lymphs (auto) 1.42 (1.0-4.6) Absolute Monos (auto) 0.48 (0.0-1.3) Lymphocytes % 21.4 L (24.0-44.0) % Monocytes % 7.2 (0.0-12.0) % Eosinophils % 5.4 H (0.00-5.0) % Basophils % 0.8 (0.0-0.4) % Absolute Granulocytes 4.34 (1.4-6.9) Basophils # 0.05 (0-0.4) PT (9.95-12.35) SECONDS INR (0.8-3.0) D-Dimer (215-500) ng/mL Sodium (137-145) mmol/L Potassium (3.5-5.1) mmol/L Chloride (98-107) mmol/L Carbon Dioxide (22-30) mmol/L Anion Gap (5-15) MEQ/L BUN (7-17) mg/dL Creatinine (0.52-1.04) mg/dL Estimated GFR ML/MIN Glucose (74-106) mg/dL Calcium (8.4-10.2) mg/dL Total Bilirubin (0.2-1.3) mg/dL AST (14-36) U/L ALT (0-35) U/L Alkaline Phosphatase (38-126) U/L Troponin I (0.000-0.034) ng/mL NT-Pro-B Natriuret Pep (0-1800) pg/mL Serum Total Protein (6.3-8.2) g/dL Albumin (3.5-5.0) g/dL - Progress Progress: re-examined, unchanged Air Movement: fair Progress Note: 02/28/20 18:52 cxr shows bilateral pleural effusions that are mild but present. The x-ray of the right shoulder reveals no acute fracture or dislocation. I spoke with the patient and her . I reviewed the patient x-ray, EKG and laboratory results findings. I feel this patient would be best served being where her packing and shipping clerk is. She has evidence of congestive heart failure, renal insufficiency, elevated troponin, and screening test d-dimer that is elevated as well. The and desire to go to [facility] in [place] Dr. Beal is her packing and shipping clerk. 02/28/20 19:39 I contacted [facility] in [place]. Dr. Sacha Sepulveda was a packing and shipping clerk covering for Dr. Ronnie Mari. He stated that he does not feel that the patient condition is due to coronary artery disease. Patient had a recent cardiac catheterization which showed minimal coronary artery disease. He feels that the patient needs to be further evaluated for pulmonary embolism and treatment for congestive heart failure. We have covered the patient with Lovenox and gave the patient a dose of Lasix intravenously. The patient is currently stable. I then spoke with Dr. Flood who is the hospitalist construction lineman. I reviewed the patient history, condition, results of her laboratory, EKG and x- ray studies. He agrees with the Lovenox treatment and with Lasix treatment. He accepts the patient in transfer. They wanted to be sure that we are aware that the patient will be transferred but it may be a while before she is transferred. They will call as soon as a telemetry bed opens up. However, they do accept this patient in transfer. I reviewed with Dr. Sandhu this patient. He will manage her while she is in the emergency room until the time of transfer. 02/28/20 19:42 Blood Culture(s) Obtained: No Antibiotics given: No Counseled pt/family regarding: lab results, diagnosis, need for follow-up, rad results - Departure Departure Disposition: Transfer Clinical Impression: Chest pain, Elevated troponin, Congestive heart failure, Elevated d-dimer, Renal insufficiency Condition: Stable Critical Care Time: Yes Critical Care Time(excluding separately billable procedures): Critical 75-104 mins Referrals: DANIEL LOYOLA [Primary Care Provider] - Instructions: Heart Failure
[2020-02-28 17:50] LABS: INR 1.09 (0.8-3.0); PROTIME 12.3 SECONDS (9.95-12.35)
[2020-02-28 18:05] LABS: ANION GAP 14.1 MEQ/L (5-15); BILIRUBIN,TOTAL 0.4 mg/dL (0.2-1.3); Creatinine 1 1.31 mg/dL (0.52-1.04); Potassium 4.8 mmol/L (3.5-5.1); Total Protein 6.9 g/dL (6.3-8.2)
[2020-02-28 18:16] LABS: Absolute Neutrophil Ct (ANC) 4.34 (1.4-6.9); BASOPHIL % 0.8 % (0.0-0.4); Basophil (Absolute #) 0.05 (0-0.4); Eosinophil % 5.4 % (0.00-5.0); Eosinophil (Absolute #) 0.36 (0-0.5); Hematocrit 34.7 % (35-47); Hemoglobin 11.2 gm/dl (12.0-16.0); Lymphocyte (Absolute #) 1.42 (1.0-4.6); Lymphocytes % 21.4 % (24.0-44.0); Mean Cell Volume 87.2 fl (78-100); Mean Corpuscular Hemoglobin 28.1 pg (26-32); Mean Corpuscular Hgb Concent. 32.3 g/dl (32-36); Mean Platelet Volume 10.2 fl (7.5-11.0); Monocyte (Absolute #) 0.48 (0.0-1.3); Monocytes % 7.2 % (0.0-12.0); Neutrophil % 65.2 % (36.0-66.0); Platelet Count 259 K/mm3 (150-450); Red Blood Count 3.98 M/mm3 (4.1-5.4); White Blood Count 6.7 K/mm3 (4.0-10.5)
[2020-02-28] MEDS ORDERED: ENOXAPARIN SODIUM SQ ONE (19:28)
[2020-02-28] MEDS ORDERED: Lasix 40 MG/4 ML IV ONE (19:30)
[2020-02-28] MEDS ORDERED: Lasix 40 MG/4 ML ONE (19:48)
[2020-02-28 22:40] VITALS: BP 139/71; PULSE 71; O2SAT 97
--- NOTE | 2020-02-29 08:47 | XRAY ---
Indication: Chest pain. Comparison: February 01, 2020. Portable chest again demonstrates cardiomegaly with worsening bibasilar effusions/atelectasis concerning for cardiac decompensation. Superimposed pneumonia is not completely excluded. Remaining chest unchanged including aortic valve prosthesis and a few scattered calcified granulomas.
--- NOTE | 2020-02-29 08:49 | XRAY ---
Indication: Pain. Comparison: None 3 view right shoulder demonstrates osteopenia and moderate AC degenerative arthropathy. No other bony, articular, or soft tissue abnormalities. Chest reported separately.
== END 2020-02-28 22:40 | disposition short-term general hospital (02) ==
LOC: ED 16:40
DX: R07.89 Other chest pain (principal); R79.89 Other specified abnormal findings of blood chemistry; I50.9 Heart failure, unspecified; R79.1 Abnormal coagulation profile; N28.9 Disorder of kidney and ureter, unspecified; M25.511 Pain in right shoulder; I10 Essential (primary) hypertension; E03.9 Hypothyroidism, unspecified; Z79.899 Other long term (current) drug therapy
CPT/HCPCS: 36000; 36415; 71045; 73030; 80053; 83880; 84484; 85025; 85379; 85610; 93005; 93041; 94760; 96372; 96374; 99285; 99291; 99292; J1650; J1940

== ENCOUNTER 2020-03-02 11:13 | Emergency (ER) | payer MEDICARE, OTHER ==
[2020-03-02 11:49] LABS: Absolute Neutrophil Ct (ANC) 5.62 (1.4-6.9); BASOPHIL % 0.7 % (0.0-0.4); Basophil (Absolute #) 0.05 (0-0.4); Eosinophil % 2.9 % (0.00-5.0); Eosinophil (Absolute #) 0.21 (0-0.5); Hematocrit 37.8 % (35-47); Hemoglobin 12.3 gm/dl (12.0-16.0); Lymphocyte (Absolute #) 0.86 (1.0-4.6); Lymphocytes % 11.9 % (24.0-44.0); Mean Cell Volume 86.3 fl (78-100); Mean Corpuscular Hemoglobin 28.1 pg (26-32); Mean Corpuscular Hgb Concent. 32.5 g/dl (32-36); Mean Platelet Volume 9.7 fl (7.5-11.0); Monocyte (Absolute #) 0.51 (0.0-1.3); Neutrophil % 77.5 % (36.0-66.0); Platelet Count 265 K/mm3 (150-450); Red Blood Count 4.38 M/mm3 (4.1-5.4); White Blood Count 7.3 K/mm3 (4.0-10.5)
[2020-03-02 11:55] LABS: INR 1.06 (0.8-3.0)
[2020-03-02 12:00] LABS: ALBUMIN 4.1 g/dL (3.5-5.0); BILIRUBIN,TOTAL 0.5 mg/dL (0.2-1.3); Calcium 9.1 mg/dL (8.4-10.2); Creatinine 1 1.41 mg/dL (0.52-1.04); Potassium 4.9 mmol/L (3.5-5.1); Total Protein 7.2 g/dL (6.3-8.2)
[2020-03-02] MEDS ORDERED: MORPHINE SULFATE 4 MG INJ IV ONE (12:09)
[2020-03-02] MEDS ORDERED: Zofran 4 MG/2 ML VIAL IV ONE (12:09)
--- NOTE | 2020-03-02 12:09 | ERPHSYRPT ---
- History of Present Illness Time Seen by Provider: 03/02/20 11:20 Source: patient, family Exam Limitations: no limitations Patient Subjective Stated Complaint: pt to ER with complaints of numbness in her R arm x 1.5 hours ago. pt was spraying roundup and started bothering her with numbness and pain. pt has hx of blood clots. Triage Nursing Assessment: A&Ox4. ambulatory. numbness in R arm/hand. unable to palpate pulses. Physician History: 84 yo with h/o DVT/CAD/CHF/ heart valve replacement, CKD presented with sudden onset right arm numbness and pain while she was weeding 1.5hrs ago . she had very painful movements at fingers cooler than left and some discoloration.She did put heating pad but not much relief. she describe this as sharp shooting moderate intensity pain , more with movements and no relieving factors. although her numbness is getting better. no chest pain /palpitations or sob. Timing/Duration: hour(s) (1.5), sudden, worse Severity: moderate Modifying Factors: Improves With: movement Associated Symptoms: denies symptoms Allergies/Adverse Reactions: naproxen Allergy (Verified 03/02/20 11:31) Penicillins Allergy (Verified 03/02/20 11:31) Home Medications: Fluticasone Propion/Salmeterol [Fluticasone-Salmeterol 250-50] 1 inh PO DAILY 05/17/19 [History] Levothyroxine Sodium 25 mcg PO DAILY 05/17/19 [History] Lisinopril 10 mg [Zestril 10 MG] 1 tab PO DAILY 05/17/19 [History] Simvastatin 40 mg PO DAILY 05/17/19 [History] Aspirin 81 gm Chew [Baby Aspirin 81 mg Chew] 81 mg PO DAILY 03/02/20 [History] Umeclidinium Brm/Vilanterol Tr [Anoro Ellipta 62.5-25 Mcg INH] 1 each IH DAILY 03/02/20 [History] Hx Tetanus, Diphtheria Vaccination/Date Given: Yes Hx Influenza Vaccination/Date Given: Yes Hx Pneumococcal Vaccination/Date Given: Yes Immunizations Up to Date: Yes Travel Risk - International Travel If Yes, where;: N - Coronavirus Screening Close contact with a COVID-19 positive Pt in past 14-21 Days: No - Review of Systems Constitutional: No Symptoms Eyes: No Symptoms Ears, Nose, & Throat: No Symptoms Respiratory: No Symptoms Cardiac: No Symptoms Abdominal/Gastrointestinal: No Symptoms Genitourinary Symptoms: No Symptoms Musculoskeletal: Arthralgias, Myalgias Skin: No Symptoms Psychological: No Symptoms Endocrine: No Symptoms Hematologic/Lymphatic: No Symptoms Immunological/Allergic: No Symptoms - Past Medical History Pertinent Past Medical History: Yes Neurological History: No Pertinent History ENT History: No Pertinent History Cardiac History: Congestive Heart Failure, Hypertension Respiratory History: Other Endocrine Medical History: Hypothyroidism Musculoskeletal History: Arthritis GI Medical History: No Pertinent History History: No Pertinent History Psycho-Social History: No Pertinent History Female Reproductive Disorders: No Pertinent History Other Medical History: varicose veins 45 years ago. 6 natural births. chronic sciatica - Past Surgical History Past Surgical History: Yes Neuro Surgical History: No Pertinent History Cardiac: No Pertinent History Respiratory: No Pertinent History Gastrointestinal: No Pertinent History Genitourinary: No Pertinent History Musculoskeletal: No Pertinent History Female Surgical History: No Pertinent History Other Surgical History: VARICOSE VEIN SURGERY - Social History Smoking Status: Former smoker Exposure to second hand smoke: No Drug Use: none Patient Lives Alone: No - Female History Hx Now: No - Nursing Vital Signs Nursing Vital Signs: Initial Vital Signs Temperature 97.9 F 03/02/20 11:20 Pulse Rate 67 03/02/20 11:20 Respiratory Rate 17 03/02/20 11:20 Blood Pressure 151/92 03/02/20 11:20 O2 Sat by Pulse Oximetry 97 03/02/20 11:20 Pain Scale Pain Intensity 8 - Physical Exam General Appearance: no apparent distress, alert, anxiety Eye Exam: PERRL/EOMI, eyes nml inspection Ears, Nose, Throat Exam: normal ENT inspection, TMs normal, pharynx normal Neck Exam: normal inspection, non-tender, supple, full range of motion Respiratory Exam: normal breath sounds, lungs clear, No chest tenderness Cardiovascular Exam: regular rate/rhythm, normal heart sounds Gastrointestinal/Abdomen Exam: soft, normal bowel sounds Back Exam: normal inspection, normal range of motion Extremity Exam: normal inspection, pelvis stable, other (mild purple discoloration of right hand finger tips. panful movements but possible, delayed cap refil in right as compared to left. cold to touch especially fingers. no palpable or dopplerable radial/brachial. good palpable left side pulses.) Neurologic Exam: alert, oriented x 3, cooperative, steward/stewardess economy class II-XII nml as tested, normal mood/affect, nml cerebellar function, nml station & gait, sensation nml Skin Exam: normal color SpO2 Interpretation: normal SpO2: 96 O2 Delivery: Room Air - Course EKG Interpreted by Me: RATE (75, ectopic atrial), NORMAL AXIS, 1st degree AV Block, Q-wave, Other (LVH) Ordered Tests: Active Orders 24 hr Category Date Time Status Incoming Inspector STAT Care 03/02/20 11:43 Active EKG-ER Only STAT Care 03/02/20 11:42 Active IV Insertion STAT Care 03/02/20 11:43 Active IV Insertion-2nd Peripheral STAT Care 03/02/20 11:43 Active Pulse Oximetry (ED) STAT Care 03/02/20 11:43 Active CBC W DIFF Stat Lab 03/02/20 11:42 Completed CMP Stat Lab 03/02/20 11:30 Completed D-DIMER QUANTITATIVE Stat Lab 03/02/20 11:30 Completed NT PRO BNP Routine Lab 03/02/20 11:45 Completed PROTIME WITH INR Stat Lab 03/02/20 11:30 Completed TROPONIN Q3H Lab 03/02/20 11:30 Received TROPONIN Q3H Lab 03/02/20 11:45 Completed TROPONIN Q3H Lab 03/02/20 17:45 Ordered TROPONIN Q3H Lab 03/02/20 20:45 Ordered TROPONIN Q3H Lab 03/02/20 23:45 Ordered Medication Summary Generic Name Dose Route Start Last Admin Trade Name Freq PRN Reason Stop Dose Admin Heparin Sodium/Dextrose 25,000 units in 250 mls @ 8 mls/hr 03/02/20 12:30 03/02/20 12:22 Heparin 25,000 Units/D5w 250ml Premix IV 04/01/20 12:29 8 units/hr .Q24H RENETTA 0.08 mls/hr Administration Discontinued Medications Generic Name Dose Route Start Last Admin Trade Name Freq PRN Reason Stop Dose Admin Heparin Sodium (Beef Lung) 4,700 unit 03/02/20 12:10 03/02/20 12:21 Heparin 5000 Units/0.5 Ml (High Risk Med) IV 03/02/20 12:11 4,700 unit STAT ONE Administration Heparin Sodium (Beef Lung) Confirm 03/02/20 12:17 Heparin 5000 Units/0.5 Ml (High Risk Med) Administered 03/02/20 12:18 Dose 5,000 unit .ROUTE .STK-MED ONE Morphine Sulfate 4 mg 03/02/20 12:09 03/02/20 12:21 Morphine Sulfate 4 Mg Inj IV 03/02/20 12:10 4 mg STAT ONE Administration Morphine Sulfate Confirm 03/02/20 12:17 Morphine Sulfate 4 Mg Inj Administered 03/02/20 12:18 Dose 4 mg .ROUTE .STK-MED ONE Ondansetron HCl 4 mg 03/02/20 12:09 03/02/20 12:21 Zofran 4 Mg/2 Ml Vial IV 03/02/20 12:10 4 mg STAT ONE Administration Ondansetron HCl Confirm 03/02/20 12:17 Zofran 4 Mg/2 Ml Vial Administered 03/02/20 12:18 Dose 4 mg .ROUTE .STK-MED ONE Lab/Rad Data: Laboratory Result Diagrams 03/02/20 11:42 03/02/20 11:30 Laboratory Results 03/02/20 03/02/20 03/02/20 Range/Units 11:45 11:42 11:30 WBC 7.3 (4.0-10.5) K/mm3 RBC 4.38 (4.1-5.4) M/mm3 Hgb 12.3 (12.0-16.0) gm/dl Hct 37.8 (35-47) % MCV 86.3 (78-100) fl MCH 28.1 (26-32) pg MCHC 32.5 (32-36) g/dl RDW 15.0 H (11.5-14.0) % Plt Count 265 (150-450) K/mm3 MPV 9.7 (7.5-11.0) fl Gran % 77.5 H (36.0-66.0) % Eos # (Auto) 0.21 (0-0.5) Absolute Lymphs (auto) 0.86 L (1.0-4.6) Absolute Monos (auto) 0.51 (0.0-1.3) Lymphocytes % 11.9 L (24.0-44.0) % Monocytes % 7.0 (0.0-12.0) % Eosinophils % 2.9 (0.00-5.0) % Basophils % 0.7 (0.0-0.4) % Absolute Granulocytes 5.62 (1.4-6.9) Basophils # 0.05 (0-0.4) PT (9.95-12.35) SECONDS INR (0.8-3.0) D-Dimer (215-500) ng/mL Sodium 136 L (137-145) mmol/L Potassium 4.9 (3.5-5.1) mmol/L Chloride 96 L (98-107) mmol/L Carbon Dioxide 27 (22-30) mmol/L Anion Gap 18.0 H (5-15) MEQ/L BUN 60 H (7-17) mg/dL Creatinine 1.41 H (0.52-1.04) mg/dL Estimated GFR 37.6 ML/MIN Glucose 109 H (74-106) mg/dL Calcium 9.1 (8.4-10.2) mg/dL Total Bilirubin 0.50 (0.2-1.3) mg/dL AST 40 H (14-36) U/L ALT 28 (0-35) U/L Alkaline Phosphatase 71 (38-126) U/L Troponin I 0.106 H* (0.000-0.034) ng/mL NT-Pro-B Natriuret Pep 15784 H (0-1800) pg/mL Serum Total Protein 7.2 (6.3-8.2) g/dL Albumin 4.1 (3.5-5.0) g/dL 03/02/ Range/Units 11:30 WBC (4.0-10.5) K/mm3 RBC (4.1-5.4) M/mm3 Hgb (12.0-16.0) gm/dl Hct (35-47) % MCV (78-100) fl MCH (26-32) pg MCHC (32-36) g/dl RDW (11.5-14.0) % Plt Count (150-450) K/mm3 MPV (7.5-11.0) fl Gran % (36.0-66.0) % Eos # (Auto) (0-0.5) Absolute Lymphs (auto) (1.0-4.6) Absolute Monos (auto) (0.0-1.3) Lymphocytes % (24.0-44.0) % Monocytes % (0.0-12.0) % Eosinophils % (0.00-5.0) % Basophils % (0.0-0.4) % Absolute Granulocytes (1.4-6.9) Basophils # (0-0.4) PT 12.0 (9.95-12.35) SECONDS INR 1.06 (0.8-3.0) D-Dimer 5442 H* (215-500) ng/mL Sodium (137-145) mmol/L Potassium (3.5-5.1) mmol/L Chloride (98-107) mmol/L Carbon Dioxide (22-30) mmol/L Anion Gap (5-15) MEQ/L BUN (7-17) mg/dL Creatinine (0.52-1.04) mg/dL Estimated GFR ML/MIN Glucose (74-106) mg/dL Calcium (8.4-10.2) mg/dL Total Bilirubin (0.2-1.3) mg/dL AST (14-36) U/L ALT (0-35) U/L Alkaline Phosphatase (38-126) U/L Troponin I (0.000-0.034) ng/mL NT-Pro-B Natriuret Pep (0-1800) pg/mL Serum Total Protein (6.3-8.2) g/dL Albumin (3.5-5.0) g/dL - Progress Progress: unchanged, pain not gone completely, re-examined Progress Note: patient has acute arterial occlusion with developing limb ischemia, discussed with at [facility] and patient is accepted for transfer . started on heparin per recommendation by vascular surgery. plan discussed with patient and family who understand and agree. 03/02/20 12:00 Will see patient in: other ( [facility]) Counseled pt/family regarding: lab results, diagnosis - Departure Departure Disposition: Transfer Clinical Impression: Acute occlusion of artery, Ischemia of right upper extremity Condition: Fair Critical Care Time: Yes Critical Care Time(excluding separately billable procedures): Critical 30-74 mins Referrals: DANIEL LOYOLA [Primary Care Provider] -
[2020-03-02] MEDS ORDERED: Heparin 5000 UNITS/0.5 ML (HIGH RISK MED) IV ONE (12:10)
[2020-03-02 12:12] LABS: TROPONIN 0.106 ng/mL (0.000-0.034)
[2020-03-02] MEDS ORDERED: Heparin 5000 UNITS/0.5 ML (HIGH RISK MED) ONE (12:17)
[2020-03-02] MEDS ORDERED: Heparin 25,000 units/D5W 250ML PREMIX 25,000 UNITS/250 ML BAG IV ONE (12:17)
[2020-03-02] MEDS ORDERED: MORPHINE SULFATE 4 MG INJ ONE (12:17)
[2020-03-02] MEDS ORDERED: Zofran 4 MG/2 ML VIAL ONE (12:17)
[2020-03-02] MEDS ORDERED: Heparin 25,000 units/D5W 250ML PREMIX 25,000 UNITS/250 ML BAG IV SCH (12:30)
[2020-03-02 12:31] VITALS: BP 143/90
[2020-03-02 12:37] VITALS: PULSE 77
[2020-03-02 12:38] VITALS: O2SAT 96
== END 2020-03-02 12:45 | disposition short-term general hospital (02) ==
LOC: ED 11:13
DX: I70.90 Unspecified atherosclerosis (principal); I99.8 Other disorder of circulatory system; R20.0 Anesthesia of skin; I25.10 Atherosclerotic heart disease of native coronary artery without angina pectoris; I50.9 Heart failure, unspecified; Z86.718 Personal history of other venous thrombosis and embolism; N18.9 Chronic kidney disease, unspecified; Z95.2 Presence of prosthetic heart valve; Z79.899 Other long term (current) drug therapy
CPT/HCPCS: 36000; 36415; 80053; 83880; 84484; 85025; 85379; 85610; 93005; 93041; 94760; 96374; 96375; 99285; 99291; J1644; J2270; J2405